=== PATIENT | male | born 1970 ===

== ENCOUNTER 2017-08-20 09:48 | Emergency (ER) | payer MEDICAID, OTHER ==
[2017-08-20 09:55] VITALS: RESP 18; O2SAT 99
[2017-08-20 10:52] LABS: BASO % 0.7 % (0.0-2.0); EOS # 0.4 K/uL (0.0-0.7); EOS % 6.4 % (0.0-4.0); HEMOGLOBIN 15.4 g/dL (12.0-18.0); LYMPH # 2.4 K/uL (1.0-4.3); LYMPH % 36.5 % (20.0-40.0); MEAN CORPUSCULAR HEMOGLOBIN 31.9 pg (27.0-31.0); MEAN PLATELET VOLUME 8.7 fL (7.2-11.7); MONO # 0.7 K/uL (0.0-0.8); MONO % 10.2 % (0.0-10.0); NEUT # 3.1 K/uL (1.8-7.0); NEUT % 46.2 % (50.0-75.0); RBC 4.83 Mil/uL (4.40-5.90); RED CELL DISTRIBUTION WIDTH 13.7 % (11.5-14.5); WHITE BLOOD COUNT 6.6 K/uL (4.8-10.8)
--- NOTE | 2017-08-20 10:57 | RAD ---
HISTORY: chest pain COMPARISON: No prior. TECHNIQUE: Chest PA and lateral FINDINGS: LUNGS: No active pulmonary disease. PLEURA: No significant pleural effusion identified. No pneumothorax apparent. CARDIOVASCULAR: Normal. OSSEOUS STRUCTURES: No significant abnormalities. VISUALIZED UPPER ABDOMEN: Normal. OTHER FINDINGS: None. IMPRESSION: No active disease.
[2017-08-20 11:09] LABS: ALB/GLOB RATIO 1.2 (1.0-2.1); ALBUMIN 4.6 g/dL (3.5-5.0); ALT/SGPT 47 U/L (21-72); AST/SGOT 28 U/L (17-59); BLOOD UREA NITROGEN 15 mg/dL (9-20); CALCIUM 9.4 mg/dl (8.6-10.4); GFR AFRICAN-AMERICAN > 60; GFR NON-AFRICAN AMERICAN > 60; LIPASE 57 U/L (23-300)
[2017-08-20 11:16] LABS: SQUAMOUS EPITHIAL < 1 /hpf (0-5); URINE BILIRUBIN NEGATIVE (NEGATIVE); URINE BLOOD NEGATIVE (NEGATIVE); URINE CLARITY Clear (Clear); URINE COLOR Straw (YELLOW); URINE GLUCOSE (UA) NORMAL (Normal); URINE LEUKOCYTE ESTERASE NEG Leu/uL (Negative); URINE PROTEIN NEGATIVE (NEGATIVE); URINE UROBILINOGEN NORMAL mg/dL (0.2-1.0)
--- NOTE | 2017-08-20 11:33 | C.PDOC ---
History Of Present Illness 47-year-old female, PMHx includes Hyperlipidema, presents to the emergency department with complaints of right-upper quadrant abdominal pain, that started six days ago. Pain is constant in nature, sharp and radiating to back. Patient denies exacerbating factors. He denies nausea/vomiting, fevers, change in bowel habits, or any other associated symptoms. No other complaints at this time. Time Seen by Provider: 08/20/17 10:12 Chief Complaint (Nursing): Abdominal Pain History Per: Patient History/Exam Limitations: no limitations Onset/Duration Of Symptoms: Days Current Symptoms Are (Timing): Still Present Severity: Moderate Past Medical History Reviewed: Historical Data, Nursing Documentation, Vital Signs Vital Signs: Last Vital Signs Temp 98.1 F 08/20/17 14:00 Pulse 44 L 08/20/17 14:00 Resp 18 08/20/17 14:00 BP 126/86 08/20/17 14:00 Pulse Ox 99 08/20/17 18:41 - Medical History PMH: Depression, Diabetes (Possible) Family History: States: No Known Family Hx - Social History Hx Tobacco Use: No Hx Alcohol Use: Yes Hx Substance Use: No - Immunization History Hx Tetanus Toxoid Vaccination: No Hx Influenza Vaccination: No Hx Pneumococcal Vaccination: No Review Of Systems Except As Marked, All Systems Reviewed And Found Negative. Constitutional: Negative for: Fever Cardiovascular: Negative for: Chest Pain Respiratory: Negative for: Shortness of Breath Gastrointestinal: Positive for: Abdominal Pain. Negative for: Vomiting, Diarrhea Genitourinary: Negative for: Dysuria, Hematuria Musculoskeletal: Negative for: Back Pain Physical Exam - Physical Exam Appears: Non-toxic, No Acute Distress Skin: Normal Color, Warm, Dry, No Rash Head: Normacephalic Eye(s): bilateral: PERRL Nose: Normal Oral Mucosa: Moist Lips: Normal Appearing Neck: Normal ROM Chest: Symmetrical Cardiovascular: Rhythm Regular, No Murmur Respiratory: Normal Breath Sounds, No Accessory Muscle Use Gastrointestinal/Abdominal: Soft, No Tenderness, No Guarding, No Rebound Extremity: Normal ROM, No Deformity, No Swelling Neurological/Psych: Oriented x3, Normal Speech ED Course And Treatment - Laboratory Results Result Diagrams: 08/20/17 10:48 08/20/17 10:48 ECG: Interpreted By Me, Viewed By Me ECG Rhythm: Sinus Bradycardia ECG Interpretation: No Acute Changes Interpretation Of ECG: non specific t wave changes. Normal axis Rate From EC O2 Sat by Pulse Oximetry: 99 (RA) Pulse Ox Interpretation: Normal - CT Scan/US US ABD Other Rad Studies (CT/US): Read By Radiologist, Radiology Report Reviewed CT/US Interpretation: Accession No. : [id number]. Patient Name / ID : CHINO MORA / [id number]. Exam Date : 08/20/2017 12:28:14 ( Approved ). Study Comment : Sex / Age : M / 47Y. Creator : Karli Medrano MD. Dictator : Karli Medrano MD. Vacuum Metalizer Operator : System Safety Engineer : Karli Medrano MD. Approver2 : Report Date : 08/20/2017 12:50:13. My Comment : . HISTORY: ruq tendernesss. COMPARISON: None available. TECHNIQUE: Sonographic evaluation of the right upper quadrant of the abdomen. FINDINGS: LIVER: Measures 14.0 cm in length.Echogenic liver may be seen in setting of hepatic parenchymal disease or fatty infiltration. No focal hepatic mass identified. The main portal vein appears patent with normal directional flow. No intrahepatic bile duct dilatation. GALLBLADDER: No gallstones. No gallbladder wall thickening or pericholecystic edema. Negative sonographic Hernandez's sign as assessed by the pit hoist operator. COMMON BILE DUCT: Measures 4 mm. PANCREAS: Not well-visualized. RIGHT KIDNEY: Measures 8.5 x 3.8 x 3.8 cm. No obstructing calculus or hydronephrosis identified. Echogenic renal parenchyma may be seen in setting of medical renal disease. AORTA: Limited visualization appears grossly unremarkable. IVC: Limited visualization appears grossly unremarkable. OTHER FINDINGS: None . IMPRESSION: Echogenic liver may be seen in setting of hepatic parenchymal disease or fatty infiltration. Echogenic renal parenchyma may be seen in setting of medical renal disease. Medical Decision Making Medical Decision Making: Plan: * EKG * Bloodwork * Chest X-Ray * Aspirin, Pepcid, Toradol * US Abdomen * UA * Reassess and Disposition atypical chest pain - advised 2 sets of troponin, patient do not wish to wait and will sign out ama. Leaving Against Medical Advice (AMA): This patient is choosing to leave against medical advice. I have personally explained to the pt that choosing to do so may result in permanent bodily harm or . I have discussed at great length that without further evaluation and monitoring there may be unforeseen circumstances and/or deterioration causing permanent bodily harm or as a result of their choice. The pt verbalized these risks back to the physician in laymans terms. The pt is alert, oriented, and shows the mental capacity to make clear decisions regarding the pts health care at this time. The pt continues to wish to leave against medical advice. In light of the pts decision to leave AMA, follow-up has been arranged and the pt is aware of the importance of following up as instructed. The pt has been advised that they should return to the ED immediately if they change their mind at any time, or if their condition begins to change or worsen in any way. Disposition Counseled Patient/Family Regarding: Studies Performed, Diagnosis, Need For Followup - Disposition Disposition: AGAINST MEDICAL ADVICE Disposition Time: 14:03 Condition: FAIR Forms: [facility] ([place]an) - Clinical Impression Clinical Impression: Chest pain - Scribe Statement The provider has reviewed the documentation as recorded by the Scribe (Sara Ruvalcaba) All medical record entries made by the Scribe were at my direction and personally dictated by me. I have reviewed the chart and agree that the record accurately reflects my personal performance of the history, physical exam, medical decision making, and the department course for this patient. I have also personally directed, reviewed, and agree with the discharge instructions and disposition.
--- NOTE | 2017-08-20 12:51 | US ---
HISTORY: ruq tendernesss COMPARISON: None available. TECHNIQUE: Sonographic evaluation of the right upper quadrant of the abdomen. FINDINGS: LIVER: Measures 14.0 cm in length.Echogenic liver may be seen in setting of hepatic parenchymal disease or fatty infiltration. No focal hepatic mass identified. The main portal vein appears patent with normal directional flow. No intrahepatic bile duct dilatation. GALLBLADDER: No gallstones. No gallbladder wall thickening or pericholecystic edema. Negative sonographic Hernandez's sign as assessed by the banking specialist. COMMON BILE DUCT: Measures 4 mm. PANCREAS: Not well-visualized. RIGHT KIDNEY: Measures 8.5 x 3.8 x 3.8 cm. No obstructing calculus or hydronephrosis identified. Echogenic renal parenchyma may be seen in setting of medical renal disease. AORTA: Limited visualization appears grossly unremarkable. IVC: Limited visualization appears grossly unremarkable. OTHER FINDINGS: None . IMPRESSION: Echogenic liver may be seen in setting of hepatic parenchymal disease or fatty infiltration. Echogenic renal parenchyma may be seen in setting of medical renal disease.
[2017-08-20 14:09] VITALS: BP 126/86; PULSE 44; TEMP 98.1
--- NOTE | 2017-08-21 12:17 | CARD ---
APPROVED REPORT EKG Measurement Heart [id number] CA [id number] <Conclusion> Marked sinus bradycardia T wave abnormality, consider inferior ischemia Abnormal ECG
== END 2017-08-20 14:13 | disposition left against medical advice (07) ==
LOC: C.ER 09:48
DX: R07.9 Chest pain, unspecified (principal)
CPT/HCPCS: 71046; 76705; 80053; 81001; 83690; 84484; 85025; 85378; 93005; 96374; 96375; 99285; J1885

== ENCOUNTER 2018-02-04 08:58 | Emergency (ER) | payer OTHER ==
[2018-02-04 09:03] VITALS: BP 133/88; PULSE 76; RESP 18; TEMP 98; O2SAT 99
--- NOTE | 2018-02-04 09:16 | C.PDOC ---
History Of Present Illness 47 year old M with history of HLD, Anxiety, presented with complaint of bumps on his scalp for the past one week. Denies any fever, chills or trauma. He endorses some numbness in the area. He never had it before and states that it's painful to touch. Chief Complaint (Nursing): Abnormal Skin Integrity Past Medical History Vital Signs: Last Vital Signs Temp 98 F 02/04/18 09:01 Pulse 76 02/04/18 09:01 Resp 18 02/04/18 09:01 BP 133/88 02/04/18 09:01 Pulse Ox 99 02/04/18 09:01 - Medical History PMH: Depression, Diabetes (Possible), Hyperlipidemia Denies: Hepatitis, HIV, HTN, Seizures, Sexually Transmitted Disease Family History: States: Unknown Family Hx - Social History Hx Tobacco Use: No Hx Alcohol Use: Yes Hx Substance Use: No - Immunization History Hx Tetanus Toxoid Vaccination: No Hx Influenza Vaccination: No Hx Pneumococcal Vaccination: No Physical Exam - Physical Exam Appears: Non-toxic Skin: Normal Color Head: Swelling, Other (minimal swelling, not indurated, no fluctuance) Eye(s): bilateral: Normal Inspection, EOMI Nose: Normal Oral Mucosa: Moist Lymphatic: Normal Exam Chest: Symmetrical Respiratory: Normal Breath Sounds Gastrointestinal/Abdominal: Normal Exam Extremity: Bilateral: Atraumatic Neurological/Psych: Oriented x3, Normal Speech ED Course And Treatment O2 Sat by Pulse Oximetry: 99 Medical Decision Making Medical Decision Makin47 year old with bumps on the back of his head and is requesting a work note. Disposition - Disposition Referrals: [facility] [Outside] [facility] at [facility] [Outside] [facility] [place] [Outside] Disposition: HOME/ ROUTINE Disposition Time: :27 Condition: GOOD Prescriptions: Cephalexin [Keflex] 500 mg PO Q12 #20 capsule Ibuprofen [Motrin] 600 mg PO Q6 #20 tab Forms: [facility] (Estonian), Work Excuse - Clinical Impression Clinical Impression: Skin lesion, Folliculitis
== END 2018-02-04 09:46 | disposition home or self-care (01) ==
LOC: C.ER 08:58
DX: L98.8 Other specified disorders of the skin and subcutaneous tissue (principal); L73.9 Follicular disorder, unspecified